=== PATIENT | female | born 1935 | race Caucasian/White ===

== ENCOUNTER 2016-10-09 10:02 | Day surgery (SDC) | payer MEDICARE, BC ==
[~2016-10-09 10:02] MED LIST: Lactated Ringers 1,000 ML IV SCH; Midazolam 1 MG/ML 2 ML SDV ONE; Propofol 200 MG/20 ML SDV ONE; Sodium Chloride 0.9% 5 ML Syringe FLUSH PRN; fentaNYL 100 MCG/2 ML SDV ONE
[2016-10-09] MEDS ORDERED: Propofol 200 MG/20 ML SDV ONE (10:30)
[2016-10-09] MEDS ORDERED: fentaNYL 100 MCG/2 ML SDV IV ONE (11:05)
[2016-10-09] MEDS ORDERED: Midazolam 1 MG/ML 2 ML SDV IV ONE (11:05)
[2016-10-09] MEDS ORDERED: Propofol 200 MG/20 ML SDV IV ONE (11:05)
--- NOTE | 2016-10-09 11:55 | PCM.OPNOTE ---
- General Post-Op/Procedure Note Date of Surgery/Procedure: 10/09/16 Operative Procedure(s): Colonoscopy Findings: Long tortuous colon. Several diverticuli identified in the sigmoid colon area. No evidence of obstruction, AV malformations or angiodysplasia. No polyps. Anesthesia Technique: MAC Primary Surgeon: Chela Nieves Complications: None Condition: Good Free Text/Narrative:: INFORMED CONSENT: Patient is here today for elective colonoscopy. All aspects of this procedure have been discussed with the patient. All possible complications also, including possibility of perforation, infection, pain, bleeding and unknown complications. In the event of perforation patient may need to have abdominal exploration, colon resection, colostomy and even was discussed. Anesthetic complications were handled by anesthesia department. The patient understands fully well. Patient did not have any further questions for me at the end of my interview. The patient wishes for me to proceed. PREOPERATIVE DIAGNOSIS/INDICATIONS: [chronic] POSTOPERATIVE DIAGNOSIS: [possible irritable bowel syndrome] INSTRUMENT USED: Olympus videocolonoscope. ASA CLASSIFICATION: [3] ANESTHESIA: Continuous EKG, oximetry and intermittent blood pressure and respiratory monitoring were performed throughout the procedure. IV Versed and Fentanyl were administered. PROCEDURE PERFORMED: Colonoscopy POSITIONS OF PATIENT: Left lateral. RECTUM: Normal. SIGMOID COLON: Multiple diverticuli were seen. DESCENDING COLON: Normal. SPLENIC FLEXURE: Normal. TRANSVERSE COLON: Normal. HEPATIC FLEXURE: Normal. ASCENDING COLON: Normal. CECUM: Normal. ILEOCECAL VALVE: Normal. BIOPSY: None. TOLERANCE: Excellent. COMPLICATIONS: None. Long tortuous colon. prepped slightly less than adequate.
[2016-10-09 13:15] VITALS: BP 130/68
== END 2016-10-09 13:02 | disposition home or self-care (01) ==
LOC: KA.SDS 10:02
PROVIDERS: ATTEND Family Medicine
DX: K57.30 Diverticulosis of large intestine without perforation or abscess without bleeding (principal); Q43.8 Other specified congenital malformations of intestine; K21.9 Gastro-esophageal reflux disease without esophagitis; E03.9 Hypothyroidism, unspecified; E83.52 Hypercalcemia; I10 Essential (primary) hypertension; E87.6 Hypokalemia; E78.00 Pure hypercholesterolemia, unspecified; Z79.82 Long term (current) use of aspirin; Z88.2 Allergy status to sulfonamides; Z79.899 Other long term (current) drug therapy; Z90.49 Acquired absence of other specified parts of digestive tract; Z98.890 Other specified postprocedural states
CPT/HCPCS: 45378; J2250; J2704; J3010; 00810

== ENCOUNTER 2016-12-25 08:03 | Day surgery (SDC) | payer MEDICARE, BC ==
[~2016-12-25 08:03] MED LIST changes: +EPINEPHrine 1:10,000 1 MG/10 ML Syringe ONE; -Midazolam 1 MG/ML 2 ML SDV ONE; -fentaNYL 100 MCG/2 ML SDV ONE
[2016-12-25] MEDS ORDERED: Propofol 200 MG/20 ML SDV IV ONE (08:40)
--- NOTE | 2016-12-25 09:00 | PCM.OPNOTE ---
- General Post-Op/Procedure Note Date of Surgery/Procedure: 12/25/16 Operative Procedure(s): Upper GI Endoscopy. Findings: INFORMED CONSENT: Patient is here today for elective upper GI endoscopy. All aspects of this procedure have been discussed with the patient. All possible complications also, including possibility of perforation, infection, pain, bleeding, numbness of the throat, swallowing difficulty and unknown complications. In the event of perforation the patient may need surgical exploration to repair the defect. The patient understands fully well. Patient did not have any further questions for me at the end of my interview. The patient wishes for me to proceed. INSTRUMENT USED: Video gastroscope ANESTHESIA: [MAC] ASA CLASSIFICATION: [2] PROCEDURE PERFORMED: [Upper gastrointestinal endoscopy] PHARYNX: Normal. ESOPHAGUS: Normal. Proximal: Normal. Middle: Normal. Lower: Normal. GE Junction: Normal. A moderate-sized hiatal hernia without any inflammation was noted. STOMACH: Normal. Cardia: Normal. Fundus: Normal. Lesser Curvature: Normal. Greater Curvature: Normal. Antrum: Normal. Pylorus: Normal. DUODENUM: Normal. First Part: Normal. Second Part: Normal. Third Part: Normal. RETROFLEXION: Normal. BIOPSY: None. TOLERANCE: Excellent. COMPLICATIONS: None. Final diagnosis: Moderate-sized hiatal hernia without inflammation otherwise negative upper GI endoscopy. Anesthesia Technique: Moderate Sedation Primary Surgeon: Chela Nieves Complications: None Condition: Good
[2016-12-25 10:28] VITALS: BP 129/78
== END 2016-12-25 10:00 | disposition home or self-care (01) ==
LOC: KA.SDS 08:03
PROVIDERS: ATTEND Family Medicine
DX: K44.9 Diaphragmatic hernia without obstruction or gangrene (principal); E03.9 Hypothyroidism, unspecified; K21.9 Gastro-esophageal reflux disease without esophagitis; I10 Essential (primary) hypertension; E83.52 Hypercalcemia; F41.9 Anxiety disorder, unspecified; E87.6 Hypokalemia; Z88.2 Allergy status to sulfonamides; Z88.8 Allergy status to other drugs, medicaments and biological substances; Z79.82 Long term (current) use of aspirin; Z79.899 Other long term (current) drug therapy; Z90.49 Acquired absence of other specified parts of digestive tract; Z98.890 Other specified postprocedural states
CPT/HCPCS: 43235; J7120; 00740; J2704

== ENCOUNTER 2017-04-02 13:03 | Observation (INO) | payer MEDICARE, BC ==
[~2017-04-02 13:03] MED LIST changes: +D5 1/2 NS w/ 40 mEq/L KCl 1,000 ML IV SCH; -EPINEPHrine 1:10,000 1 MG/10 ML Syringe ONE; -Lactated Ringers 1,000 ML IV SCH; +Losartan 50 MG Tab PO ONE; +Potassium Chloride 20 MEQ in Premix Bag 1 BAG IV ONE; -Propofol 200 MG/20 ML SDV ONE; -Sodium Chloride 0.9% 5 ML Syringe FLUSH PRN
[2017-04-02] MEDS ORDERED: EPINEPHrine 1:10,000 1 MG/10 ML Syringe IVPUSH PRN (13:27)
[2017-04-02] MEDS ORDERED: Atropine 0.1 MG/ML 10 ML Syringe IVPUSH PRN (13:27)
[2017-04-02] MEDS ORDERED: Nitroglycerin 0.4 MG Tab.SL SL PRN (13:27)
[2017-04-02] MEDS ORDERED: Lidocaine 2% 100 MG/5 ML Syringe IVPUSH PRN (13:27)
[2017-04-02] MEDS ORDERED: Ondansetron 4 MG/2 ML SDV IVPUSH PRN (13:31)
[2017-04-02] MEDS: metroNIDAZOLE/Normal Saline 500 MG in Premix Bag 1 BAG IV SCH ×2 (14:17→21:18)
[2017-04-02] MEDS: D5 1/2 NS w/ 40 mEq/L KCl 1,000 ML IV SCH (15:42)
[2017-04-02] MEDS ORDERED: Cholecalciferol (Vitamin D3) 1,000 Unit Tab PO SCH (21:00)
[2017-04-02] MEDS: [UNRECOGNIZED DRUG - OTHER] PO SCH (21:15)
[2017-04-02] MEDS: CHOLECALCIFEROL 2000 UNIT PO SCH (21:16)
[2017-04-02] MEDS: [UNRECOGNIZED DRUG - REMARK] PO SCH (21:18)
[2017-04-02] MEDS: cloNIDine 0.1 MG Tab PO SCH (21:22)
[2017-04-03] MEDS: D5 1/2 NS w/ 40 mEq/L KCl 1,000 ML IV SCH (02:39)
[2017-04-03] MEDS: metroNIDAZOLE/Normal Saline 500 MG in Premix Bag 1 BAG IV SCH (04:51)
[2017-04-03] MEDS: Levothyroxine 50 MCG Tab PO SCH ×2 (07:36→08:32)
[2017-04-03] MEDS: [UNRECOGNIZED DRUG - REMARK] PO SCH (08:58)
[2017-04-03] MEDS ORDERED: Aspirin 81 MG Tab.Chew PO SCH (09:00)
[2017-04-03] MEDS ORDERED: Levothyroxine 50 MCG Tab PO SCH (09:00)
[2017-04-03] MEDS ORDERED: cloNIDine 0.1 MG Tab PO SCH (09:00)
[2017-04-03] MEDS: CHOLECALCIFEROL 2000 UNIT PO SCH ×2 (09:19→20:47)
[2017-04-03] MEDS: OMEGA KRILL OIL PO SCH (09:20)
[2017-04-03] MEDS: MYRBETRIQ 50 MG PO SCH (09:20)
[2017-04-03] MEDS: [UNRECOGNIZED DRUG - OTHER] PO SCH ×2 (09:21→20:46)
[2017-04-03] MEDS: VITAMIN K PO SCH (09:21)
[2017-04-03] MEDS: Losartan 100 MG Tab PO SCH (09:29)
[2017-04-03] MEDS ORDERED: Sodium Chloride 0.9% 5 ML Syringe FLUSH PRN (10:29)
--- NOTE | 2017-04-03 10:51 | PCM.PN ---
- General Info Date of Service: 04/03/17 - Patient Data Vitals - Most Recent: Last Vital Signs Temp 98.3 F 04/03/17 06:37 Pulse 76 04/03/17 07:02 Resp 20 04/03/17 06:37 BP 151/91 H 04/03/17 07:02 Pulse Ox 95 04/03/17 06:37 Weight - Most Recent: 106 lb 1.6 oz I&O - Last 24 Hours: Intake & Output 04/02/17 04/03/17 04/03/17 22:59 06:59 14:59 Intake Total 1873 910 337 Output Total 2400 1550 Balance -527 -640 337 Lab Results Last 24 Hours: Laboratory Results - last 24 hr 04/02/17 04/03/17 Range/Units 21:11 07:15 Potassium 3.7 4.0 (3.3-5.3) mmol/L Med Orders - Current: Current Medications Atropine Sulfate (Atropine 0.1 Mg/Ml) 0 mg IVPUSH ASDIRECTED PRN PRN Reason: Heart Epinephrine HCl (Epinephrine 1:10,000) 1 mg IVPUSH ASDIRECTED PRN PRN Reason: Heart Lidocaine HCl (Xylocaine 2%) 0 mg IVPUSH ASDIRECTED PRN PRN Reason: Heart Nitroglycerin (Nitrostat) 0.4 mg SL ASDIRECTED PRN PRN Reason: Heart Non-Formulary Medication (Plant Stanol Blanca [Cholest Off]) 450 mg PO BID [facility] Last Admin: 04/03/17 08:58 Dose: Not Given Ondansetron HCl (Zofran) 4 mg IVPUSH Q6H PRN PRN Reason: Nausea/Vomiting Ultra Toyin Spectrum 1 each PO BID [facility] Last Admin: 04/03/17 09:21 Dose: 1 each Losartan 100 Mg Tab 1 each PO DAILY [facility] Last Admin: 04/03/17 09:29 Dose: 1 each Myrbetriq 50 Mg Er 1 each PO DAILY [facility] Last Admin: 04/03/17 09:20 Dose: 1 each [place] 3-Krill Oil 1 each PO DAILY [facility] Last Admin: 04/03/17 09:20 Dose: 1 each Potassium Chloride (10 Meq) 1 each PO TID [facility] Vancomycin 125 Mg (Capsule) 1 each PO QID [facility] Last Admin: 04/02/17 21:16 Dose: 1 each Vitamin K 120 Mcg 1 each PO DAILY [facility] Last Admin: 04/03/17 09:21 Dose: 1 each Aspirin Ec 81mg 1 each PO DAILY [facility] Last Admin: 04/03/17 09:19 Dose: 1 each Cholecalciferol ( Vitamin D3) 2,000 Units 1 each PO BID [facility] Last Admin: 04/03/17 09:19 Dose: 1 each Clonidine 0.1 Mg Tab 1 each PO BEDTIME [facility] Last Admin: 04/02/17 21:22 Dose: 1 each Levothyroxine 50 Mcg (Tab) 1 each PO DAILY [facility] Last Admin: 04/03/17 08:32 Dose: Not Given Sodium Chloride (Syrex Flush) 5 ml FLUSH Q8HR PRN PRN Reason: Keep Vein Open Discontinued Medications Aspirin (Aspirin) 81 mg PO DAILY [facility] Cholecalciferol (Vitamin D3) 2,000 units PO BID [facility] Clonidine HCl (Catapres) 0.1 mg PO DAILY [facility] Potassium Chloride/Dextrose/Sod Cl (D5 1/2 Ns W/ 40 Meq/L Kcl) 1,000 mls @ 250 mls/hr IV ASDIRECTED [facility] Potassium Chloride 20 meq/ (Premix) 100 mls @ 25 mls/hr IV ONETIME ONE Stop: 04/02/17 16:53 Last Admin: 04/02/17 15:41 Dose: 25 mls/hr Metronidazole 500 mg/ Premix 100 mls @ 100 mls/hr IV Q8H [facility] Last Admin: 04/03/17 04:51 Dose: 100 mls/hr Potassium Chloride/Dextrose/Sod Cl (D5 1/2 Ns W/ 40 Meq/L Kcl) 1,000 mls @ 100 mls/hr IV ASDIRECTED [facility] Last Admin: 04/03/17 02:39 Dose: 100 mls/hr Levothyroxine Sodium (Synthroid) 50 mcg PO DAILY [facility] Losartan Potassium (Cozaar) 100 mg PO ONETIME ONE Stop: 04/02/17 12:55 Last Admin: 04/02/17 15:16 Dose: Not Given - Problem List Review Problem List Initiated/Reviewed/Updated: Yes - My Orders Last 24 Hours: My Active Orders 04/02/17 13:27 Atropine [Atropine 0.1 MG/ML] 0 mg IVPUSH ASDIRECTED PRN EPINEPHrine [EPINEPHrine 1:10,000] 1 mg IVPUSH ASDIRECTED PRN Lidocaine 2% [Xylocaine 2%] 0 mg IVPUSH ASDIRECTED PRN Nitroglycerin [Nitrostat] 0.4 mg SL ASDIRECTED PRN 04/02/17 13:29 Patient Status [ADT] Routine 04/02/17 13:31 Ondansetron [Zofran] 4 mg IVPUSH Q6H PRN 04/02/17 13:35 Oxygen Therapy [RC] Up With Assistance [RC] ASDIRECTED Vital Signs [RC] 0300,0700,1100,1500,1900,2300 Resuscitation Status Routine 04/02/17 13:40 Cardiac Monitoring [RC] 0300,0700,1100,1500,1900,2300 Intake and Output [RC] 1400,2200,0600 04/03/17 09:00 Patient's Own Medication [Ptom] 1 each PO DAILY 04/03/17 10:29 Sodium Chloride 0.9% [Syrex Flush] 5 ml FLUSH Q8HR PRN Convert IV to Peripheral Lock [Convert IV to Saline Lock] [OM.PC] Routine 04/03/17 Lunch Gluten Free Diet [DIET] - Plan Plan:: Primary assessment C. difficile infection, increased vancomycin to 250 mg QID, (likely will need 14 day treatment), isolation precautions. Improving Small intestinal bowel overgrowth (SIB0), exacerbating condition, slowly advance to Fast Tract diet, as tolerated Fecal incontinence, chronic, exacerbating clinical picture. Hypokalemia, resolved. Discontinued hydrochlorothiazide, hold PO supplementation. Discontinue telemetry monitoring Hypomagnesemia, continue oral supplementation. Reassess today Dehydration, hypotonic, resolved, saline lock. Monitor oral intake Hypertension, max dose ARB, will monitor, may have to add CCB. Slightly exacerbated by increased fluid status, situational anxiety Unintentional weight loss, long discussion regarding goals Overall plan, disposition, discharge planning, long discussion with patient and family. They agree with plan of care. Patient will need very close follow-up as outpatient. Will increase vancomycin, saline lock, reassess electrolytes in a.m. however magnesium today. Discontinue telemetry Likely will need effervescent K+ as outpatient. Continue holding HCTZ, placed back on maximum ARB , may add CCB. Advance diet to Fast Trac today. Likely could benefit from GI referral to discuss Fiudaxomicin therapy. Anticipate discharge home tomorrow with close outpatient follow-up.
[2017-04-03] MEDS ORDERED: [UNRECOGNIZED DRUG - REMARK] PO SCH (14:30)
[2017-04-03] MEDS: [UNRECOGNIZED DRUG - REMARK] PO SCH (14:51)
[2017-04-03] MEDS: amLODIPine 5 MG Tab PO SCH (18:33)
[2017-04-03] MEDS: cloNIDine 0.1 MG Tab PO SCH (20:47)
[2017-04-04] MEDS: [UNRECOGNIZED DRUG - REMARK] PO SCH (06:19)
[2017-04-04] MEDS ORDERED: Levothyroxine 50 MCG Tab PO SCH (07:00)
[2017-04-04 07:39] LABS: CHLORIDE,CL 100 mmol/L (98-115); SODIUM,NA 137 mmol/L (136-145)
[2017-04-04] MEDS: MYRBETRIQ 50 MG PO SCH (08:45)
[2017-04-04] MEDS: CHOLECALCIFEROL 2000 UNIT PO SCH (08:45)
[2017-04-04] MEDS: OMEGA KRILL OIL PO SCH (08:46)
[2017-04-04] MEDS: [UNRECOGNIZED DRUG - OTHER] PO SCH (08:47)
[2017-04-04] MEDS: Losartan 100 MG Tab PO SCH (08:49)
[2017-04-04] MEDS: VITAMIN K PO SCH (08:49)
[2017-04-04] MEDS: amLODIPine 5 MG Tab PO SCH (09:08)
[2017-04-04 09:09] VITALS: BP 119/76
--- NOTE | 2017-04-07 08:35 | DISCH ---
FINAL DIAGNOSES: 1. Clostridium difficile colitis, improving clinically. 2. Small bowel intestinal overgrowth (SIBO). 3. Hypokalemia, improved. 4. Dehydration, resolved. 5. Hypomagnesemia, improved. HISTORY: This 81-year-old female was admitted in observation due to electrolyte disturbance and dehydration. She does have C. diff and she has been on vancomycin, this was increased while in the hospital. She had considerable amount of diarrhea, so she was admitted in observation. The patient does have a several month history of small intestinal bacterial overgrowth in which she is on FODMAP diet. She had been recently placed on metronidazole, likely causing her C. diff infection. She does see a dietary specialist in [place], [place]. She has been on an extremely restrictive diet including what was called a Fast Tract Diet. She has been kind of a roller coaster when it comes to staying on this diet, as soon as she comes off it, she has extensive diarrhea. The patient states she could not eat anything without having multiple episodes of watery diarrhea during the day. She does have a daughter with SIBO that seems to be well controlled. The patient has lost significant weight over the past few months. HOSPITAL COURSE: Hospital course went well. She was well hydrated. Her electrolytes were corrected. She was given IV fluids. The patient was placed on an advancing diet of her Fast Tract Diet along with increase in protein such as coppola and eggs. She had significant improvement. She feels better today. Her last stool was the day prior to discharge at 2:30, it was small. Did increase her vancomycin from 125 to 250 mg p.o. q.i.d. She did have some high blood pressure readings while in the hospital. I had taken her off her hydrochlorothiazide due to exacerbating hypokalemia. I did add low-dose calcium channel shara, amlodipine 5 mg, her blood pressure was normal on discharge. She continues with clonidine. I did continue with ARB 100 mg daily. PHYSICAL EXAM ON DISCHARGE: VITAL SIGNS: Blood pressure 119/76. Weight was 103 pounds, 8 ounces. Temperature 97.5, O2 sats 96%, this is on room air. GENERAL: The patient is alert and oriented. She feels much better. NECK: No lymphadenopathy. ABDOMEN: No abdominal distention. Low tone bowel tones noted. MEDICATION ADJUSTMENTS: 1. Discontinue losartan/hydrochlorothiazide. 2. Add losartan 100 mg p.o. daily (newly added). 3. Amlodipine 5 mg p.o. daily (newly added). She can continue with clonidine. 4. Discontinue oral potassium tablets, added effervescent 25 mEq p.o. daily for hopefully better absorption. We will see how she does with this. LABS: Potassium on discharge 3.5, creatinine 0.52, GFR greater than 60. Magnesium 1.8. AST, ALT, and alkaline phosphatase normal. Albumin normal. /[id number]/MODL
== END 2017-04-04 10:27 | disposition home or self-care (01) ==
LOC: KA.IVTHER 13:03 → KA.MS 13:29
PROVIDERS: ADMIT Nurse Practitioner Family; ATTEND Nurse Practitioner Family
DX: A04.72 Enterocolitis due to Clostridium difficile, not specified as recurrent (principal); K90.89 Other intestinal malabsorption; E87.6 Hypokalemia; E86.0 Dehydration; E83.42 Hypomagnesemia; K21.9 Gastro-esophageal reflux disease without esophagitis; E03.9 Hypothyroidism, unspecified; M81.0 Age-related osteoporosis without current pathological fracture; I10 Essential (primary) hypertension; M41.9 Scoliosis, unspecified; E43 Unspecified severe protein-calorie malnutrition; R15.9 Full incontinence of feces; Z79.899 Other long term (current) drug therapy; Z88.2 Allergy status to sulfonamides; Z88.8 Allergy status to other drugs, medicaments and biological substances; Z90.710 Acquired absence of both cervix and uterus; Z98.890 Other specified postprocedural states; Z90.49 Acquired absence of other specified parts of digestive tract; Z90.89 Acquired absence of other organs
CPT/HCPCS: 36415; 80053; 83735; 84132; 96361; 96365; 96366; 96367; A9270-GY; G0378; G0379; J3480

== ENCOUNTER 2019-10-20 14:01 | Emergency (ER) | payer MEDICARE, BC ==
--- NOTE | 2019-10-20 14:24 | EDM.PDOC ---
ED HPI GENERAL MEDICAL PROBLEM - General Chief Complaint: Cardiovascular Problem Stated Complaint: HBP Time Seen by Provider: 10/20/19 14:24 Source of Information: Reports: Patient, Family - History of Present Illness INITIAL COMMENTS - FREE TEXT/NARRATIVE: Fiorella presents today, with concerns and anxiety about her blood pressure readings. She gives details about being seen by Eric Arora with adjustments in her medication for better implementation of early a.m. readings. There seems to be mild confusion as to how she was to implement this change, as her son, pharmacist informed her that her clonidine cannot be stopped all at once. In review of the record it shows that it is being tapered with an initial 50% decrease starting today and then she is to be followed up in the clinic next week for reevaluation of this decrease, as well as the implementation of 12.5 mg hydrochlorothiazide daily. She seems concerned that her blood pressure readings have continued to remain elevated, to which they seem to elevate further the more she assesses that factor. She states that she does not want anxiety medication because her son, states that will just lead to her falling. She denies any true symptoms of hypertension other than the readings themselves, denying any visual changes, headache, dizziness, palpitations, chest pressure nor chest pain. Onset: Gradual Duration: Day(s): Location: Reports: Other Quality: Reports: Other Severity: Moderate Improves with: Reports: None Worsens with: Reports: Other (Anxiety) Context: Reports: Other (Anxiety) Associated Symptoms: Reports: No Other Symptoms - Related Data Allergies Allergy/AdvReac Type Severity Reaction Status Date / Time antihemophilic factor VIII, Allergy Nausea Verified 10/20/19 14:38 human r [From Recombinate] diclofenac sodium Allergy Rash Verified 10/20/19 14:38 [From Voltaren] Sulfa (Sulfonamide Allergy Rash Verified 10/20/19 14:38 Antibiotics) teriparatide Allergy Nausea Verified 10/20/19 14:38 Home Meds: Home Meds Levothyroxine [Synthroid] 50 mcg PO DAILY@0700 06/21/15 [History] cloNIDine HCL [Catapres] 0.1 mg PO BID 06/21/15 [History] Mirabegron [Myrbetriq] 50 mg PO DAILY 09/30/16 [History] Losartan [Cozaar] 100 mg PO BEDTIME 04/02/17 [History] Cholecalciferol (Vitamin D3) [Vitamin D3] 2,000 unit PO BID 04/03/17 [History] Magnesium Glycinate 200mg Tab 2 tab PO BID 04/03/17 [History] [place] 3-Krill Oil 1 cap PO DAILY 04/03/17 [History] Ultra [place] Spectrum 1 cap PO DAILY 04/03/17 [History] Acetaminophen [Tylenol Arthritis Pain] 650 mg PO Q8H PRN 10/20/19 [History] Calcium Carb/Magnesium Oxid/D3 [Calcium Magnesium + D] 1 tab PO DAILY 10/20/19 [History] hydroCHLOROthiazide [Hydrochlorothiazide] 12.5 mg PO DAILY 10/20/19 [History] Past Medical History HEENT History: Reports: Cataract, Impaired Vision Cardiovascular History: Reports: Heart Murmur, Hypertension Respiratory History: Reports: None Gastrointestinal History: Reports: Fecal Incontinence, Hiatal Hernia, Other (See Below) Other Gastrointestinal History: 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 History: Reports: Musculoskeletal History: Reports: Back Pain, Chronic, Osteoarthritis, Other (See Below) Other Musculoskeletal History: Scoliosis Neurological History: Reports: Vertigo Psychiatric History: Reports: Anxiety Endocrine/Metabolic History: Reports: Hypothyroidism, Osteopenia Hematologic History: Reports: Blood Transfusion(s) Oncologic (Cancer) History: Reports: None Dermatologic History: Reports: Psoriasis - Infectious Disease History Infectious Disease History: Reports: C-Difficile, Measles, Mumps - Past Surgical History HEENT Surgical History: Reports: Adenoidectomy, Cataract Surgery, Tonsillectomy Cardiovascular Surgical History: Reports: None Respiratory Surgical History: Reports: None GI Surgical History: Reports: Cholecystectomy, Hernia, Inguinal Female Surgical History: Reports: Other (See Below) Other Female Surgeries/Procedures: bladder prolapse repair Endocrine Surgical History: Reports: None Neurological Surgical History: Reports: None Musculoskeletal Surgical History: Reports: Arthroscopic Knee, Shoulder Surgery Oncologic Surgical History: Reports: None Social & Family History - Family History Family Medical History: Noncontributory - Caffeine Use Caffeine Use: Reports: None ED ROS GENERAL - Review of Systems Review Of Systems: Comprehensive ROS is negative, except as noted in HPI. ED EXAM, GENERAL - Physical Exam Exam: See Below Free Text/Narrative:: Alert oriented x3 in no evidence of distress. HEENT is negative to discharge or deformity other than she has mild ecchymosis to the right episcopal and periorbital region from where she bumped her cabinet door last week. She states new cabinets were put in in her countertops were raised and she is not used to that new adjustment. Neck is soft supple no lymphadenopathy, no JVD, no carotid bruit. There is no rigidity range of motion is intact with no pain. PERRLA mildly constricted but reactive to light no icterus no injection. Limited nondilated funduscopy is negative for nicking no scarring. Thorax is clear throughout no wheezes no crackles are appreciated. Cardiac is S1-S2 with an occasional ectopic beat no murmur appreciated. Abdomen and flank are pain-free with normal bowel sounds. rectal is deferred as well as breast. Lower extremities have +12 edema nonpitting which she states is likely due to not using her compression stockings in the heat of summer and elevated humidity. I acknowledge that that is quite common for people being active in [place] in the months of August and September. Demonstrates no evidence of CHF nor CA nor CVA. She seems to be focused on her blood pressure as well as the passing of her sister roughly 2 years ago from CVA that she states was likely related to high blood pressure. Reassessment after treatment of the blood pressure with hydralazine 5 mg repeated x1 as well as oral hydrochlorothiazide given this afternoon to avoid taking it in the evening when she gets her pills shows improvement in her blood pressure as well as her anxiety level that we have made a change/treatment in her plan for today. She remains alert oriented breath sounds are clear cardiac is unchanged. EKG INTERPRETATION EKG Date: 10/20/19 Time: 14:23 Rhythm: NSR Arnot: Normal P-Wave: Present QRS: Normal ST-T: Normal QT: Normal Course - Vital Signs Last Recorded V/S: Last Vital Signs Temp 36.8 C 10/20/19 14:05 Pulse 76 10/20/19 15:46 Resp 23 H 10/20/19 15:46 BP 161/83 H 10/20/19 15:46 Pulse Ox 96 10/20/19 15:46 - Orders/Labs/Meds Orders: Active Orders 24 hr Category Date Time Status EKG Documentation Completion [RC] ASDIRECTED Care 10/20/19 14:18 Active hydroCHLOROthiazide Med 10/20/19 15:30 Active 12.5 mg PO DAILY EKG 12 Lead [EK] Stat Ther 10/20/19 14:17 Ordered Medication Orders Hydrochlorothiazide (Hydrochlorothiazide) 12.5 mg PO DAILY CHARBEL Last Admin: 10/20/19 15:39 Dose: 12.5 mg Documented by: JONES Labs: Laboratory Tests 10/20/19 10/20/19 Range/Units 14:30 14:30 WBC 3.74 L (5.00-10.00) 10^3/uL RBC 3.62 L (3.80-5.50) 10^6/uL Hgb 11.4 L (12.0-16.0) g/dL Hct 34.6 L (37.0-47.0) % MCV 95.6 H D (82.0-92.0) fL MCH 31.5 H (27.0-31.0) pg MCHC 32.9 (32.0-36.0) g/dL RDW 12.4 (11.5-14.5) % Plt Count 204 (150-400) 10^3/uL MPV 9.4 (7.4-10.4) fL Immature Gran % (Auto) 0.0 (0.0-5.0) % Neut % (Auto) 52.7 (50.0-70.0) % Lymph % (Auto) 28.1 (20.0-40.0) % Centre % (Auto) 14.7 H (2.0-8.0) % Eos % (Auto) 3.7 H (1.0-3.0) % Baso % (Auto) 0.8 (0.0-1.0) % Neut # (Auto) 1.97 L (2.50-7.00) 10^3/uL Lymph # (Auto) 1.05 (1.00-4.00) 10^3/uL Centre # (Auto) 0.55 (0.10-0.80) 10^3/uL Eos # (Auto) 0.14 (0.10-0.30) 10^3/uL Baso # (Auto) 0.03 (0.00-0.10) 10^3/uL Immature Gran # (Auto) 0.00 (0.00-0.50) 10^3/uL Sodium 141 (136-145) mmol/L Potassium 3.9 (3.3-5.3) mmol/L Chloride 104 (98-115) mmol/L Carbon Dioxide 29.6 (21.0-32.0) mmol/L Anion Gap 11.3 (5-15) mmol/L BUN 17 (6-25) mg/dL Creatinine 0.73 (0.51-1.17) mg/dL Est Cr Clr Drug Dosing 41.94 mL/min Estimated GFR (MDRD) > 60 mL/min Glucose 127 H (75 - 99) mg/dL Calcium 8.8 (8.7-10.3) mg/dL Total Bilirubin 0.4 (0.2-1.0) mg/dL AST 17 (15-37) U/L ALT 17 (12-78) U/L Alkaline Phosphatase 43 L (46-116) IU/L Troponin I 0.07 (0.00-0.070) ng/mL B-Natriuretic Peptide 109 H (0-100) pg/mL Total Protein 6.8 (6.4-8.2) g/dL Albumin 3.63 (3.00-4.80) g/dL Meds: Medications Generic Name Dose Route Start Last Admin Trade Name Freq PRN Reason Stop Dose Admin Hydrochlorothiazide 12.5 mg 10/20/19 15:30 10/20/19 15:39 Hydrochlorothiazide PO 12.5 mg DAILY CHARBEL Administration Discontinued Medications Generic Name Dose Route Start Last Admin Trade Name Freq PRN Reason Stop Dose Admin Hydralazine HCl 5 mg 10/20/19 14:59 10/20/19 15:07 Apresoline IVPUSH 10/20/19 15:00 5 mg ONETIME ONE Administration Hydralazine HCl 5 mg 10/20/19 15:20 10/20/19 15:40 Apresoline IVPUSH 10/20/19 15:21 5 mg ONETIME ONE Administration Departure - Departure Time of Disposition: 16:30 Disposition: Home, Self-Care 01 Condition: Good Clinical Impression: Hypertension, Edema Instructions: Peripheral Edema Referrals: Eric Arora NP [Primary Care Provider] - Forms: ED Department Discharge Additional Instructions: There were no significant findings in your lab work today showing any sequela from your blood pressure history. You need to take your medications as directed with the losartan being taken 100 mg at night until they are able to complete the evaluation for your sleep apnea. Decreasing the clonidine in half for the next week, will be reevaluated when you meet with Eric in the clinic next week to determine the reduction for tapering off completely. The hydrochlorothiazide is a very mild diuretic that you will start taking tomorrow morning and take every morning until you are rechecked in the clinic next week. The remainder of your medications were unchanged by the [facility]. Consideration for an anxiety medicine may benefit the overall health status as of a prevent the anxiety from building up. Continue checking and documenting your blood pressure readings, bringing that with to your clinic visits for Erci to review. It is beneficial for accuracy to continue taking blood pressures at the same time as you have been since there is been a slight adjustment in your medications. Call your clinic, or the hospital if they are closed if any concerns develop prior to your next appointment. Sepsis Event Note (ED) - Focused Exam Vital Signs: Vital Signs Temp Pulse Resp BP BP Pulse Ox 10/20/19 15:46 76 23 H 161/83 H 96 10/20/19 15:08 65 15 173/87 H 98 10/20/19 14:31 68 19 209/102 H 98 10/20/19 14:30 65 14 209/102 H 97 10/20/19 14:18 66 165/81 H 10/20/19 14:10 200/107 H 214/105 H 10/20/19 14:05 36.8 C 67 22 H 226/102 H 97 - Problem List & Annotations (1) Anemia SNOMED Code(s): 973212577 Code(s): D64.9 - ANEMIA, UNSPECIFIED Status: Chronic Priority: Medium Current Visit: Yes Qualifiers: Anemia type: unspecified type Qualified Code(s): D64.9 - Anemia, unspecified (2) Hypertension SNOMED Code(s): 57650979 Code(s): I10 - ESSENTIAL (PRIMARY) HYPERTENSION Status: Chronic Priority: High Current Visit: Yes Qualifiers: Hypertension type: essential hypertension Qualified Code(s): I10 - Essential (primary) hypertension (3) Edema SNOMED Code(s): 747947619, 020458851 Code(s): R60.9 - EDEMA, UNSPECIFIED Status: Chronic Current Visit: Yes Qualifiers: Edema type: localized Qualified Code(s): R60.0 - Localized edema (4) Elevated brain natriuretic peptide (BNP) level SNOMED Code(s): 507488267, [id number] Code(s): R79.89 - OTHER SPECIFIED ABNORMAL FINDINGS OF BLOOD CHEMISTRY Status: Acute Priority: Medium Current Visit: Yes Annotation/Comment:: Slight elevation in your BNP will also benefit from the use of the hydroc hlorothiazide was ordered from Eric Arora. - Problem List Review Problem List Initiated/Reviewed/Updated: Yes - My Orders Last 24 Hours: My Active Orders 10/20/19 14:17 EKG 12 Lead [EK] Stat 10/20/19 14:18 EKG Documentation Completion [RC] ASDIRECTED 10/20/19 15:30 hydroCHLOROthiazide 12.5 mg PO DAILY - Assessment/Plan Last 24 Hours: My Active Orders 10/20/19 14:17 EKG 12 Lead [EK] Stat 10/20/19 14:18 EKG Documentation Completion [RC] ASDIRECTED 10/20/19 15:30 hydroCHLOROthiazide 12.5 mg PO DAILY Plan: There were no significant findings in your lab work today showing any sequela from your blood pressure history. You need to take your medications as directed with the losartan being taken 100 mg at night until they are able to complete the evaluation for your sleep apnea. Decreasing the clonidine in half for the next week, will be reevaluated when you meet with Eric in the clinic next week to determine the reduction for tapering off completely. The hydrochlorothiazide is a very mild diuretic that you will start taking tomorrow morning and take every morning until you are rechecked in the clinic next week. The remainder of your medications were unchanged by the [facility]. Consideration for an anxiety medicine may benefit the overall health status as of a prevent the anxiety from building up. Continue checking and documenting your blood pressure readings, bringing that with to your clinic visits for Eric to review. It is beneficial for accuracy to continue taking blood pressures at the same time as you have been since there is been a slight adjustment in your medications. Call your clinic, or the hospital if they are closed if any concerns develop prior to your next appointment.
[2019-10-20] MEDS ORDERED: hydrALAZINE 20 MG/ML SDV IVPUSH ONE ×2 (14:59→15:20)
[2019-10-20 15:08] LABS: ANION GAP 11.3 mmol/L (5-15); CHLORIDE,CL 104 mmol/L (98-115); SODIUM,NA 141 mmol/L (136-145)
[2019-10-20] MEDS ORDERED: Hydrochlorothiazide 12.5 MG Cap PO SCH (15:30)
[2019-10-20 15:46] VITALS: PULSE 76
[2019-10-20 17:20] VITALS: BP 168/84
== END 2019-10-20 17:05 | disposition home or self-care (01) ==
LOC: KA.ED 14:01
DX: I10 Essential (primary) hypertension (principal); R60.0 Localized edema; M41.9 Scoliosis, unspecified; E03.9 Hypothyroidism, unspecified; Z88.6 Allergy status to analgesic agent; Z88.2 Allergy status to sulfonamides; Z88.8 Allergy status to other drugs, medicaments and biological substances
CPT/HCPCS: 36415; 80053; 83880; 84484; 85025; 93005; 96374; 96376; 99283-25; 99284; A9270-GY; J0360

== ENCOUNTER 2023-06-27 17:14 | Emergency (ER) | payer MEDICARE, BC ==
[2023-06-27] MEDS: Sodium Chloride 0.9% 1,000 ML IV ONE (17:40)
[2023-06-27 17:59] LABS: BASOPHILS ABSOLUTE AUTO 0.03 10^3/uL (0.00-0.10); BASOPHILS PERCENT AUTO 0.6 % (0.0-1.0); EOSINOPHILS ABSOLUTE AUTO 0.07 10^3/uL (0.10-0.30); EOSINOPHILS PERCENT AUTO 1.3 % (1.0-3.0); HEMATOCRIT 38.4 % (37.0-47.0); HEMOGLOBIN 12.7 g/dL (12.0-16.0); IMMATURE GRAN ABSOLUTE AUTO 0.01 10^3/uL (0.00-0.50); IMMATURE GRAN PERCENT AUTO 0.2 % (0.0-5.0); LYMPHOCYTES ABSOLUTE AUTO 0.58 10^3/uL (1.00-4.00); LYMPHOCYTES PERCENT AUTO 10.7 % (20.0-40.0); MEAN CORPUSCULAR HEMOGLOBIN 32.4 pg (27.0-31.0); MEAN CORPUSCULAR HGB CONC 33.1 g/dL (32.0-36.0); MONOCYTES ABSOLUTE AUTO 0.47 10^3/uL (0.10-0.80); MONOCYTES PERCENT AUTO 8.7 % (2.0-8.0); NEUTROPHILS ABSOLUTE AUTO 4.27 10^3/uL (2.50-7.00); NEUTROPHILS PERCENT AUTO 78.5 % (50.0-70.0); PLATELET COUNT,PLT 226 10^3/uL (150-400); RED BLOOD CELL COUNT 3.92 10^6/uL (3.80-5.50); WHITE BLOOD CELL COUNT,WBC 5.43 10^3/uL (5.00-10.00)
[2023-06-27 18:23] LABS: ALBUMIN 3.44 g/dL (3.40-5.00); BILIRUBIN TOTAL 0.4 mg/dL (0.2-1.0); CARBON DIOXIDE,CO2 27.4 mmol/L (21.0-32.0); CREATININE 0.73 mg/dL (0.51-1.17); EST CRCL DRUG DOSING (CG) 39.73 mL/min; POTASSIUM,K 4.4 mmol/L (3.5-5.1)
[2023-06-27 19:17] LABS: APPEARANCE,URINE SLIGHTLY CLOUDY (CLEAR); BILIRUBIN,URINE NEGATIVE (NEGATIVE); COLOR,URINE YELLOW (YELLOW); GLUCOSE,URINE NEGATIVE (NEGATIVE); KETONES,URINE TRACE mg/dL (NEGATIVE); LEUKOCYTE ESTERASE,URINE TRACE (NEGATIVE); NITRITE,URINE NEGATIVE (NEGATIVE); OCCULT BLOOD,URINE NEGATIVE (NEGATIVE); PROTEIN,URINE NEGATIVE (NEGATIVE); UROBILINOGEN,URINE 0.2 E.U./dL (0.2-1.0)
[2023-06-27 19:33] LABS: RBC,URINE 0-5 /HPF (0-5); WBC,URINE 0-5 /HPF (0-5)
[2023-06-27 19:34] LABS: BACTERIA,URINE RARE /HPF (NONE TO FEW); EPITHELIAL CELLS,URINE RARE /LPF
[2023-06-27 21:34] VITALS: BP 170/88; PULSE 75
== END 2023-06-27 19:51 | disposition home or self-care (01) ==
LOC: KA.ED 17:14
DX: M41.9 Scoliosis, unspecified (principal); R09.89 Other specified symptoms and signs involving the circulatory and respiratory systems; E86.0 Dehydration; R53.1 Weakness; I10 Essential (primary) hypertension; E03.9 Hypothyroidism, unspecified; Z88.8 Allergy status to other drugs, medicaments and biological substances; Z88.1 Allergy status to other antibiotic agents; Z79.899 Other long term (current) drug therapy; Z90.49 Acquired absence of other specified parts of digestive tract; W18.30XA Fall on same level, unspecified, initial encounter
CPT/HCPCS: 36415; 80053; 81001; 84484; 85025; 86140; 96360; 99285-25; J7030

== ENCOUNTER 2023-06-28 11:23 | Inpatient (IN) | payer MEDICARE, BC ==
[2023-06-28 11:48] LABS: BASOPHILS ABSOLUTE AUTO 0.02 10^3/uL (0.00-0.10); BASOPHILS PERCENT AUTO 0.3 % (0.0-1.0); EOSINOPHILS ABSOLUTE AUTO 0.08 10^3/uL (0.10-0.30); HEMATOCRIT 38.2 % (37.0-47.0); HEMOGLOBIN 12.8 g/dL (12.0-16.0); IMMATURE GRAN ABSOLUTE AUTO 0.07 10^3/uL (0.00-0.50); IMMATURE GRAN PERCENT AUTO 0.9 % (0.0-5.0); LYMPHOCYTES ABSOLUTE AUTO 0.79 10^3/uL (1.00-4.00); LYMPHOCYTES PERCENT AUTO 10.4 % (20.0-40.0); MEAN CORPUSCULAR HEMOGLOBIN 32.7 pg (27.0-31.0); MEAN CORPUSCULAR HGB CONC 33.5 g/dL (32.0-36.0); MEAN CORPUSCULAR VOLUME 97.7 fL (82.0-92.0); MONOCYTES ABSOLUTE AUTO 0.69 10^3/uL (0.10-0.80); MONOCYTES PERCENT AUTO 9.1 % (2.0-8.0); NEUTROPHILS ABSOLUTE AUTO 5.97 10^3/uL (2.50-7.00); NEUTROPHILS PERCENT AUTO 78.3 % (50.0-70.0); PLATELET COUNT,PLT 217 10^3/uL (150-400); RED BLOOD CELL COUNT 3.91 10^6/uL (3.80-5.50); WHITE BLOOD CELL COUNT,WBC 7.62 10^3/uL (5.00-10.00)
[2023-06-28 12:05] LABS: PROTHROMBIN TIME 10.4 SEC (9.3-12.2); PTT,PARTIAL THROMBOPLSTIN TIME 23.6 SEC (23.3-34.9)
[2023-06-28 12:08] LABS: ALANINE AMINOTRANSFERASE,ALT 28 U/L (14-63); ALBUMIN 3.55 g/dL (3.40-5.00); ALKALINE PHOSPHATASE 53 U/L (46-116); ANION GAP 10.2 mmol/L (5-15); ASPARTATE AMNIOTRANSFERASE,AST 25 U/L (15-37); BILIRUBIN TOTAL 0.8 mg/dL (0.2-1.0); BLOOD UREA NITROGEN,BUN 20 mg/dL (7-18); CARBON DIOXIDE,CO2 30.3 mmol/L (21.0-32.0); CHLORIDE,CL 103 mmol/L (98-107); CREATININE 0.49 mg/dL (0.51-1.17); GLUCOSE RANDOM 168 mg/dL (70-140); POTASSIUM,K 3.5 mmol/L (3.5-5.1); PROTEIN TOTAL,TP 7.2 g/dL (6.4-8.2); SODIUM,NA 140 mmol/L (136-145)
[2023-06-28 12:10] LABS: ESTIMATED GFR 92 mL/min (>=60)
[2023-06-28] MEDS: Iopamidol 755 Mg/ML 100 ML Bottle IV ONE (12:53)
[2023-06-28] MEDS: Sodium Chloride 0.9% 100 ML IV SCH (12:53)
[2023-06-28] MEDS ORDERED: Ondansetron 4 MG/2 ML SDV IV PRN (15:38)
[2023-06-28] MEDS ORDERED: Albuterol/Ipratropium 3.0-0.5 MG/3 ML Neb Soln NEB PRN (15:38)
[2023-06-28] MEDS: Furosemide 40 MG/4 ML VIAL IVPUSH ONE (16:12)
[2023-06-28] MEDS: Acetaminophen 325 MG Tab PO PRN (17:20)
[2023-06-28] MEDS ORDERED: amLODIPine 5 MG Tab PO SCH (21:00)
[2023-06-28] MEDS: Losartan 50 MG Tab PO SCH (21:06)
[2023-06-29] MEDS: Levothyroxine 50 MCG Tab PO SCH (06:03)
[2023-06-29 07:28] LABS: HEMATOCRIT 36.4 % (37.0-47.0); HEMOGLOBIN 12.2 g/dL (12.0-16.0); MEAN CORPUSCULAR HEMOGLOBIN 32.3 pg (27.0-31.0); MEAN CORPUSCULAR HGB CONC 33.5 g/dL (32.0-36.0); MEAN CORPUSCULAR VOLUME 96.3 fL (82.0-92.0); PLATELET COUNT,PLT 198 10^3/uL (150-400); RED BLOOD CELL COUNT 3.78 10^6/uL (3.80-5.50); RED CELL DISTRIBUTION WIDTH 12.8 % (11.5-14.5); WHITE BLOOD CELL COUNT,WBC 7.43 10^3/uL (5.00-10.00)
[2023-06-29 07:44] LABS: ALBUMIN 3.18 g/dL (3.40-5.00); ANION GAP 9.7 mmol/L (5-15); BILIRUBIN TOTAL 0.9 mg/dL (0.2-1.0); CALCIUM 8.6 mg/dL (8.7-10.3); CARBON DIOXIDE,CO2 31.6 mmol/L (21.0-32.0); CREATININE 0.52 mg/dL (0.51-1.17); EST CRCL DRUG DOSING (CG) 55.78 mL/min; POTASSIUM,K 3.3 mmol/L (3.5-5.1); PROTEIN TOTAL,TP 6.7 g/dL (6.4-8.2)
[2023-06-29] MEDS: MYRBETRIQ 25 MG PO SCH (08:43)
[2023-06-29] MEDS: amLODIPine 5 MG Tab PO SCH (08:43)
[2023-06-29] MEDS: Escitalopram 10 MG Tab PO SCH (08:43)
[2023-06-29 10:28] LABS: APPEARANCE,URINE CLEAR (CLEAR); BILIRUBIN,URINE NEGATIVE (NEGATIVE); COLOR,URINE LIGHT YELLOW (YELLOW); GLUCOSE,URINE 100 mg/dL (NEGATIVE); KETONES,URINE NEGATIVE (NEGATIVE); LEUKOCYTE ESTERASE,URINE NEGATIVE (NEGATIVE); NITRITE,URINE NEGATIVE (NEGATIVE); OCCULT BLOOD,URINE NEGATIVE (NEGATIVE); PH,URINE 7.5 (5.0-9.0); PROTEIN,URINE NEGATIVE (NEGATIVE); UROBILINOGEN,URINE 0.2 E.U./dL (0.2-1.0)
[2023-06-29] MEDS: Furosemide 40 MG/4 ML VIAL IVPUSH ONE (10:37)
[2023-06-29] MEDS: Potassium Chloride 20 MEQ Tab.ER PO ONE (14:11)
[2023-06-29] MEDS: PEG 400/Hypromellose/Glycerin 15 ML Bottle EYEBOTH PRN (18:23)
[2023-06-29] MEDS: Enoxaparin 30 MG/0.3 ML Syringe SUBCUT SCH (20:27)
[2023-06-29] MEDS: atorvaSTATin 40 MG Tab PO SCH (20:28)
[2023-06-30] MEDS: Aspirin 81 MG Tab.EC PO SCH (07:00)
[2023-06-30 07:38] LABS: HEMOGLOBIN 13.1 g/dL (12.0-16.0); MEAN CORPUSCULAR HEMOGLOBIN 32.3 pg (27.0-31.0); MEAN CORPUSCULAR HGB CONC 33.6 g/dL (32.0-36.0); MEAN CORPUSCULAR VOLUME 96.1 fL (82.0-92.0); MEAN PLATELET VOLUME 9.9 fL (7.4-10.4); PLATELET COUNT,PLT 208 10^3/uL (150-400); RED BLOOD CELL COUNT 4.06 10^6/uL (3.80-5.50); RED CELL DISTRIBUTION WIDTH 12.7 % (11.5-14.5); WHITE BLOOD CELL COUNT,WBC 6.59 10^3/uL (5.00-10.00)
[2023-06-30 07:54] LABS: ALBUMIN 3.05 g/dL (3.40-5.00); BILIRUBIN TOTAL 0.9 mg/dL (0.2-1.0); CALCIUM 8.7 mg/dL (8.7-10.3); CARBON DIOXIDE,CO2 29.8 mmol/L (21.0-32.0); CREATININE 0.46 mg/dL (0.51-1.17); EST CRCL DRUG DOSING (CG) 63.06 mL/min; PROTEIN TOTAL,TP 6.9 g/dL (6.4-8.2)
[2023-06-30 08:04] LABS: ANION GAP 8.7 mmol/L (5-15); POTASSIUM,K 3.5 mmol/L (3.5-5.1)
[2023-06-30] MEDS: Sodium Chloride 0.9% 10 ML Syringe FLUSH PRN (20:30)
[2023-06-30] MEDS: Enoxaparin 40 MG/0.4 ML Syringe SUBCUT SCH (20:42)
[2023-07-01 11:46] LABS: ALBUMIN 2.86 g/dL (3.40-5.00); ANION GAP 10.1 mmol/L (5-15); BILIRUBIN TOTAL 0.7 mg/dL (0.2-1.0); CALCIUM 9.1 mg/dL (8.7-10.3); CREATININE 0.46 mg/dL (0.51-1.17); EST CRCL DRUG DOSING (CG) 63.06 mL/min; POTASSIUM,K 4.1 mmol/L (3.5-5.1); PROTEIN TOTAL,TP 6.7 g/dL (6.4-8.2)
[2023-07-01] MEDS: Acetaminophen 325 MG Tab PO SCH ×2 (19:57→20:13)
[2023-07-01] MEDS: Magnesium Hydroxide 400 MG/5 ML Susp 30 ML Cup PO PRN (19:58)
[2023-07-01] MEDS: PEG 400/Hypromellose/Glycerin 15 ML Bottle EYEBOTH SCH ×2 (19:59→20:14)
[2023-07-01] MEDS: MYRBETRIQ 25 MG PO SCH (20:00)
[2023-07-02] MEDS: Furosemide 20 MG Tab PO SCH (08:46)
[2023-07-02] MEDS: Polyethylene Glycol 3350 Powder 17 GM Packet PO PRN (10:40)
[2023-07-02 11:21] VITALS: BP 122/72; PULSE 83
== END 2023-07-02 11:21 | disposition swing bed (61) | DRG 64 ==
LOC: KA.ED 11:23 → KA.MS 11:30 → UNDOADMIN 13:24
PROVIDERS: ADMIT Internal Medicine; ATTEND Internal Medicine
DX: G45.9 Transient cerebral ischemic attack, unspecified (principal); R09.02 Hypoxemia; I10 Essential (primary) hypertension; I63.422 Cerebral infarction due to embolism of left anterior cerebral artery; J96.01 Acute respiratory failure with hypoxia; Z66 Do not resuscitate; Z88.1 Allergy status to other antibiotic agents; G83.11 Monoplegia of lower limb affecting right dominant side; I11.0 Hypertensive heart disease with heart failure; M19.90 Unspecified osteoarthritis, unspecified site; F41.9 Anxiety disorder, unspecified; E03.9 Hypothyroidism, unspecified; I48.91 Unspecified atrial fibrillation; I50.9 Heart failure, unspecified; H54.7 Unspecified visual loss; M54.9 Dorsalgia, unspecified; M41.9 Scoliosis, unspecified; G89.29 Other chronic pain; Z91.81 History of falling; Z88.2 Allergy status to sulfonamides; Z79.890 Hormone replacement therapy; Z90.89 Acquired absence of other organs; Z98.890 Other specified postprocedural states; Z79.899 Other long term (current) drug therapy; Z98.49 Cataract extraction status, unspecified eye; Z90.49 Acquired absence of other specified parts of digestive tract; Z88.8 Allergy status to other drugs, medicaments and biological substances
CPT/HCPCS: 36415; 70450; 71275; 80053; 82550; 84484; 85025; 85610; 85730; 93010; 99284; 99285; J3490; Q9967; 70551; 81003; 85027; 99223-GT; 99232-GT; 99233-GT; 99239-GT; A9270-GY; J1650; J1940; Q3014

== ENCOUNTER 2023-07-02 08:50 | Inpatient (IN) | payer MEDICARE, BC ==
[2023-07-02] MEDS ORDERED: Sodium Chloride 0.9% 10 ML Syringe FLUSH PRN (11:53)
[2023-07-02] MEDS ORDERED: Magnesium Hydroxide 400 MG/5 ML Susp 30 ML Cup PO PRN (11:53)
[2023-07-02] MEDS ORDERED: Sodium Chloride 0.9% 100 ML IV SCH (11:53)
[2023-07-02] MEDS ORDERED: Albuterol/Ipratropium 3.0-0.5 MG/3 ML Neb Soln NEB PRN (11:53)
[2023-07-02] MEDS ORDERED: Ondansetron 4 MG/2 ML SDV IV PRN (11:53)
[2023-07-02] MEDS: Acetaminophen 325 MG Tab PO SCH (12:03)
[2023-07-02] MEDS ORDERED: PEG 400/Hypromellose/Glycerin 15 ML Bottle EYEBOTH SCH (13:00)
[2023-07-02] MEDS: Acetaminophen 325 MG Tab PO PRN (14:59)
[2023-07-02] MEDS: Bisacodyl 5 MG Tab PO PRN (17:07)
[2023-07-02] MEDS: Sodium Chloride 0.9% 10 ML Syringe FLUSH PRN (20:30)
[2023-07-02] MEDS: Enoxaparin 40 MG/0.4 ML Syringe SUBCUT SCH (20:52)
[2023-07-02] MEDS: atorvaSTATin 40 MG Tab PO SCH (20:56)
[2023-07-02] MEDS: Losartan 50 MG Tab PO SCH (20:56)
[2023-07-02] MEDS: PEG 400/Hypromellose/Glycerin 15 ML Bottle EYEBOTH PRN (20:58)
[2023-07-02] MEDS: MYRBETRIQ 25 MG PO SCH (21:33)
[2023-07-03] MEDS: Levothyroxine 50 MCG Tab PO SCH (06:05)
[2023-07-03] MEDS: Furosemide 20 MG Tab PO SCH (09:01)
[2023-07-03] MEDS: Aspirin 81 MG Tab.EC PO SCH (09:01)
[2023-07-03] MEDS: Escitalopram 10 MG Tab PO SCH (09:01)
[2023-07-03] MEDS: amLODIPine 5 MG Tab PO SCH (09:01)
[2023-07-03] MEDS: Polyethylene Glycol 3350 Powder 17 GM Packet PO PRN (11:50)
[2023-07-03 18:22] LABS: BASOPHILS ABSOLUTE AUTO 0.04 10^3/uL (0.00-0.10); BASOPHILS PERCENT AUTO 0.8 % (0.0-1.0); EOSINOPHILS ABSOLUTE AUTO 0.26 10^3/uL (0.10-0.30); EOSINOPHILS PERCENT AUTO 5.1 % (1.0-3.0); HEMATOCRIT 37.9 % (37.0-47.0); HEMOGLOBIN 12.6 g/dL (12.0-16.0); IMMATURE GRAN ABSOLUTE AUTO 0.01 10^3/uL (0.00-0.50); IMMATURE GRAN PERCENT AUTO 0.2 % (0.0-5.0); LYMPHOCYTES ABSOLUTE AUTO 1.01 10^3/uL (1.00-4.00); LYMPHOCYTES PERCENT AUTO 19.6 % (20.0-40.0); MEAN CORPUSCULAR HEMOGLOBIN 32.1 pg (27.0-31.0); MEAN CORPUSCULAR HGB CONC 33.2 g/dL (32.0-36.0); MEAN CORPUSCULAR VOLUME 96.4 fL (82.0-92.0); MEAN PLATELET VOLUME 9.5 fL (7.4-10.4); MONOCYTES ABSOLUTE AUTO 0.59 10^3/uL (0.10-0.80); MONOCYTES PERCENT AUTO 11.5 % (2.0-8.0); NEUTROPHILS ABSOLUTE AUTO 3.23 10^3/uL (2.50-7.00); NEUTROPHILS PERCENT AUTO 62.8 % (50.0-70.0); PLATELET COUNT,PLT 258 10^3/uL (150-400); RED BLOOD CELL COUNT 3.93 10^6/uL (3.80-5.50); RED CELL DISTRIBUTION WIDTH 12.8 % (11.5-14.5); WHITE BLOOD CELL COUNT,WBC 5.14 10^3/uL (5.00-10.00)
[2023-07-03 18:38] LABS: ALBUMIN 2.86 g/dL (3.40-5.00); ANION GAP 13.5 mmol/L (5-15); BILIRUBIN TOTAL 0.5 mg/dL (0.2-1.0); CALCIUM 8.4 mg/dL (8.7-10.3); CARBON DIOXIDE,CO2 27.6 mmol/L (21.0-32.0); CREATININE 0.52 mg/dL (0.51-1.17); EST CRCL DRUG DOSING (CG) 55.78 mL/min; MAGNESIUM 1.8 mg/dL (1.8-2.4); POTASSIUM,K 4.1 mmol/L (3.5-5.1); PROTEIN TOTAL,TP 6.8 g/dL (6.4-8.2)
[2023-07-03] MEDS ORDERED: Magnesium Oxide 500 MG Tab PO ONE ×2 (19:00)
[2023-07-03] MEDS: Magnesium Oxide 500 MG Tab PO ONE (19:17)
[2023-07-09 11:46] LABS: BASOPHILS ABSOLUTE AUTO 0.04 10^3/uL (0.00-0.10); BASOPHILS PERCENT AUTO 0.8 % (0.0-1.0); EOSINOPHILS ABSOLUTE AUTO 0.19 10^3/uL (0.10-0.30); HEMOGLOBIN 13.4 g/dL (12.0-16.0); IMMATURE GRAN ABSOLUTE AUTO 0.01 10^3/uL (0.00-0.50); IMMATURE GRAN PERCENT AUTO 0.2 % (0.0-5.0); LYMPHOCYTES PERCENT AUTO 20.8 % (20.0-40.0); MEAN CORPUSCULAR HEMOGLOBIN 31.8 pg (27.0-31.0); MEAN CORPUSCULAR HGB CONC 32.7 g/dL (32.0-36.0); MEAN CORPUSCULAR VOLUME 97.4 fL (82.0-92.0); MONOCYTES ABSOLUTE AUTO 0.61 10^3/uL (0.10-0.80); MONOCYTES PERCENT AUTO 12.7 % (2.0-8.0); NEUTROPHILS ABSOLUTE AUTO 2.96 10^3/uL (2.50-7.00); NEUTROPHILS PERCENT AUTO 61.5 % (50.0-70.0); PLATELET COUNT,PLT 320 10^3/uL (150-400); RED BLOOD CELL COUNT 4.21 10^6/uL (3.80-5.50); RED CELL DISTRIBUTION WIDTH 12.6 % (11.5-14.5); WHITE BLOOD CELL COUNT,WBC 4.81 10^3/uL (5.00-10.00)
[2023-07-09 12:03] LABS: ANION GAP 10.5 mmol/L (5-15); CALCIUM 9.3 mg/dL (8.7-10.3); CARBON DIOXIDE,CO2 29.9 mmol/L (21.0-32.0); CREATININE 0.5 mg/dL (0.51-1.17); EST CRCL DRUG DOSING (CG) 58.01 mL/min; POTASSIUM,K 4.4 mmol/L (3.5-5.1)
[2023-07-10 12:27] VITALS: BP 125/70; PULSE 68
== END 2023-07-10 13:21 | disposition home or self-care (01) | DRG 948 ==
LOC: KA.MS 11:21
PROVIDERS: ADMIT Internal Medicine; ATTEND Internal Medicine
DX: R53.81 Other malaise (principal); I50.30 Unspecified diastolic (congestive) heart failure; I11.0 Hypertensive heart disease with heart failure; R29.898 Other symptoms and signs involving the musculoskeletal system; E04.1 Nontoxic single thyroid nodule; Z86.73 Personal history of transient ischemic attack (TIA), and cerebral infarction without residual deficits
CPT/HCPCS: 36415; 80048; 80053; 83605; 83735; 85025; 93880; 97110-GO; 97535-GO; A9270-GY; J1650; J3490; Q3014